=== PATIENT | female | born 1955 | race Caucasian/White ===

== ENCOUNTER → 2016-08-27 | Outpatient (CLI) | payer BC ==
--- NOTE | 2016-08-31 09:10 | MM ---
Reason for exam: screening (asymptomatic). Last mammogram was performed 13 years and 1 month ago. History: Patient is postmenopausal. Physical Findings: A clinical breast exam by your physician is recommended on an annual basis and results should be correlated with mammographic findings. MG Screening Mammo w CAD Bilateral CC and MLO view(s) were taken. No prior studies available for comparison. The breast tissue is heterogeneously dense. This may lower the sensitivity of mammography. Previous mammotome biopsy in the right breast. Some nodularity in the right breast is likely benign and can be reassessed in 6 months. Prior exams no longer available. ASSESSMENT: Probably benign, BI-RAD 3 RECOMMENDATION: Follow-up diagnostic mammogram of the right breast in 6 months.
== END | disposition home or self-care (01) ==
LOC: RADMAMWWP 08:36
PROVIDERS: ATTEND Internal Medicine
DX: Z12.31 Encounter for screening mammogram for malignant neoplasm of breast (principal)

== ENCOUNTER → 2018-07-20 | Outpatient (CLI) | payer OTHER ==
--- NOTE | 2018-07-21 13:02 | MM ---
Reason for exam: screening (asymptomatic). Last mammogram was performed 1 year and 11 months ago. History: Patient is postmenopausal. Physical Findings: A clinical breast exam by your physician is recommended on an annual basis and results should be correlated with mammographic findings. MG Screening Mammo w CAD Bilateral CC and MLO view(s) were taken. Prior study comparison: August 27, 2016, bilateral MG screening mammo w CAD. July 12, 2003, right breast special view mammogram. The breast tissue is heterogeneously dense. This may lower the sensitivity of mammography. There is chronic nodularity. There is no dominant lesion. No significant changes when compared with prior studies. ASSESSMENT: Benign, BI-RAD 2 RECOMMENDATION: Routine screening mammogram of both breasts in 1 year.
== END | disposition home or self-care (01) ==
LOC: RADMAMWWP 14:02
PROVIDERS: ATTEND Internal Medicine
DX: Z12.31 Encounter for screening mammogram for malignant neoplasm of breast (principal)
CPT/HCPCS: 77067

== ENCOUNTER 2018-12-28 09:43 | Day surgery (SDC) | payer OTHER ==
[2018-12-27 09:58] VITALS: BMI 22.2
[~2018-12-28 09:43] MED LIST: LIDOCAINE 1% 20 ML VIAL (10MG/ML) FOR IV START INTRADERMA PRN; MOXIFLOXACIN HCL 0.5% DROPS 3 ML BTL OP ONE; TETRACAINE 0.5% OPHTH (PF) DROPS 4 ML BTL OP ONE; TIMOLOL 0.5% OPHTH DROPS 5 ML BTL OP ONE
[2018-12-28 10:51] VITALS: TEMP 97.4
[2018-12-28] MEDS: PHENYLEPHRINE 2.5% OPHTH DRP 2ML OP NR ×3 (10:55→11:13)
[2018-12-28] MEDS: CYCLOPENTOLATE 1% OPHTH SOLN 2 ML BTL OP ONE ×3 (10:57→11:16)
[2018-12-28] MEDS: LACTATED RINGERS 1,000 ML IV SCH ×2 (11:08→11:53)
[2018-12-28] MEDS ORDERED: MIDAZOLAM 2 MG/2 ML VIAL ONE (11:46)
[2018-12-28] MEDS ORDERED: fentaNYL (PF) 50 MCG/ML 2 ML AMP ONE (11:46)
[2018-12-28] MEDS ORDERED: EPINEPHrine (PF) 0.3 ML in BALANCED SALT IRRIG SOLN COMB2 500 ML IRRIGATION ONE (12:07)
[2018-12-28] MEDS ORDERED: LIDOCAINE 1% (PF) 10MG/ML VIAL SQ ONE (12:15)
[2018-12-28] MEDS ORDERED: DUOVISC KIT (GREEN BOX) INTRAOCULA ONE (12:15)
[2018-12-28] MEDS ORDERED: BALANCED SALT IRRIG SOLN COMB2 15 ML IRRIG.SOLN INTRAOCULA ONE (12:15)
--- NOTE | 2018-12-28 12:35 | P.OP ---
Date of Procedure: 12/28/18 Preoperative Diagnosis: NS & POAG mild stage Postoperative Diagnosis: same Procedure(s) Performed: PIOL & iStent implant OD Implants: MX60T 24.5 x 1.25 Anesthesia: MAC Surgeon: Gerry Keating Estimated Blood Loss (ml): 0 Pathology: none sent Condition: stable Disposition: same day Indications for Procedure: blurry vision and glaucoma Operative Findings: no complications
[2018-12-28 12:59] VITALS: BP 144/84; PULSE 68; RESP 18
--- NOTE | 2018-12-29 06:09 | OP ---
OPERATIVE REPORT DATE OF SURGERY: December 28, 2018. PROCEDURE: Phacoemulsification of cataract and intraocular lens implant of the right eye with an eye stent implantation. PREOPERATIVE DIAGNOSIS: Nuclear sclerosis, regular astigmatism and primary open-angle glaucoma mild stage. POSTOPERATIVE DIAGNOSES: Nuclear sclerosis, regular astigmatism and primary open-angle glaucoma mild stage. SURGEON: Dr. Gerry Keating. ANESTHESIA: Topical. ESTIMATED BLOOD LOSS: Less than 5 mL. SPECIMEN TAKEN: None. NARRATIVE: After obtaining the appropriate consent, the patient was brought to the operating room. There she was asked to sit upright and the axes of 0 and 180 degrees were identified and marked with a gentian andrés marker. She was then brought into the proper supine position under cardiac monitoring then prepped and draped in the usual sterile manner. She was laid in the proper supine position and approached from her right temporal side. Using a Valencia toric axis marker which was aligned to the 78 degree axis was placed on the patient's cornea leaving a maggi at the 78 degree axis on her limbus. This was removed from the field and at the 11 o'clock position an MVR blade was used to create a paracentesis port. Through this opening 1% Xylocaine MPF 50:50 mix with balanced salt solution was injected into the anterior chamber. This was followed by stabilization of the anterior chamber with Viscoat. At 9 o'clock position, a 2.5 mm keratome was used to create a self-sealing corneal flap incision in a Langerman's fashion. A small dollop of Viscoat was placed on the patient's cornea. She was then asked to rotate her head approximately 45 degrees to her left and a gonioprism was placed on the patient's eye. Without the aid of trypan blue, the trabecular meshwork was identified and an iStent model [id number] was passed across the anterior chamber and placed within the trabecular meshwork on the nasal side of the patient's eye. She was then asked to return to the normal supine position to begin work on the anterior capsule. The capsulorrhexis was performed using a cystotome to start a continuous tear capsulorrhexis which was completed using the Utrata forceps. Hydrodissection and hydrodelineation of the lens was accomplished with balanced salt solution. Phacoemulsification of the lens utilizing phaco chop was accomplished in 12.79 seconds at 15% power. Additional Xylocaine MPF was instilled into the anterior chamber. This was followed by removal of the remaining cortex under irrigation and aspiration along with careful polishing of the posterior capsule in the capsule vacuum mode. Provisc was then used to stabilize the capsular bag and a Bausch and Lomb MX60T 24.5 diopter spherical equivalent by using a small 125 diopter toric lens was then placed into the capsular bag without difficulty. The remaining viscoelastic was removed from in and around the intraocular lens as well as from within the anterior chamber. The lens was allowed to dwell in the eye becoming warmer which allowed further relaxation of the haptics. Once this was accomplished, the lens was rotated into the axis of 78 degrees, which had been previously marked on the patient's eye. The optic of the lens was then tamponaded slightly against the posterior capsule to ensure rotational stability. The irrigation aspiration instrument was then carefully withdrawn from the anterior chamber and the anterior chamber was gently brought to normal intraocular pressure through the paracentesis port. The temporal incision was hydrated slightly with balanced salt solution. She then received 2 drops of 0.5% timolol followed by 2 drops of moxifloxacin and was then lightly patched and shielded in the usual manner. There were no complications from the procedure. She tolerated the procedure well and was returned to outpatient recovery in good condition. MMARABELLAL / ROCN: [id number] /
== END 2018-12-28 13:05 | disposition home or self-care (01) ==
LOC: OR 09:43
PROVIDERS: ATTEND Ophthalmology
DX: H25.13 Age-related nuclear cataract, bilateral (principal); H40.1131 Primary open-angle glaucoma, bilateral, mild stage; H40.033 Anatomical narrow angle, bilateral; H52.03 Hypermetropia, bilateral; H52.4 Presbyopia; H00.023 Hordeolum internum right eye, unspecified eyelid; H00.026 Hordeolum internum left eye, unspecified eyelid; E78.5 Hyperlipidemia, unspecified; F17.210 Nicotine dependence, cigarettes, uncomplicated; H52.221 Regular astigmatism, right eye; Z79.1 Long term (current) use of non-steroidal anti-inflammatories (NSAID); Z79.899 Other long term (current) drug therapy
CPT/HCPCS: 0191T; 66984

== ENCOUNTER 2019-01-11 06:24 | Day surgery (SDC) | payer OTHER ==
[2019-01-06 11:34] VITALS: BMI 28.0
[~2019-01-11 06:24] MED LIST changes: +CYCLOPENTOLATE 1% OPHTH SOLN 2 ML BTL OP ONE; +LACTATED RINGERS 1,000 ML IV SCH; +PHENYLEPHRINE 2.5% OPHTH DRP 2ML OP NR
[2019-01-11 07:03] VITALS: TEMP 97.6
[2019-01-11] MEDS ORDERED: MIDAZOLAM 2 MG/2 ML VIAL ONE (07:20)
[2019-01-11] MEDS ORDERED: fentaNYL (PF) 50 MCG/ML 2 ML AMP ONE (07:20)
[2019-01-11] MEDS ORDERED: EPINEPHrine (PF) 0.3 ML in BALANCED SALT IRRIG SOLN COMB2 500 ML IRRIGATION ONE (07:42)
[2019-01-11] MEDS ORDERED: LIDOCAINE 1% (PF) 10MG/ML VIAL INTRAARTIC ONE (07:44)
[2019-01-11] MEDS ORDERED: DUOVISC KIT (GREEN BOX) INTRAOCULA ONE (07:44)
[2019-01-11] MEDS ORDERED: BALANCED SALT IRRIG SOLN COMB2 15 ML IRRIG.SOLN INTRAOCULA ONE (07:44)
[2019-01-11] MEDS ORDERED: TRYPAN BLUE 0.06% SYRINGE 0.5 ML SYRINGE INTRAOCULA ONE (07:52)
--- NOTE | 2019-01-11 08:06 | P.OP ---
Date of Procedure: 01/11/19 Preoperative Diagnosis: NS & astigmatism & glaucoma mild stage Postoperative Diagnosis: same Procedure(s) Performed: PIOL, OS & iStent Implants: MX60T 24.0 x 1.25 & [id number] Anesthesia: MAC Surgeon: Gerry Keating Estimated Blood Loss (ml): 0 Pathology: none sent Condition: stable Disposition: same day Indications for Procedure: blurry vision astigmatism & glaucoma Operative Findings: No complications
[2019-01-11 08:36] VITALS: BP 123/76; PULSE 67; RESP 18
--- NOTE | 2019-01-11 14:29 | OP ---
OPERATIVE REPORT DATE OF SURGERY: 01/11/2019. PROCEDURE: Phacoemulsification of cataract and intraocular lens implant of the left eye with an eye stent implantation of the left eye. PREOPERATIVE DIAGNOSES: 1. Nuclear sclerosis. 2. Regular astigmatism. 3. Primary open-angle glaucoma, mild stage. POSTOPERATIVE DIAGNOSES: 1. Nuclear sclerosis. 2. Regular astigmatism. 3. Primary open-angle glaucoma, mild stage. SURGEON: Dr. Gerry Keating. ANESTHESIA: Topical. ESTIMATED BLOOD LOSS: None. SPECIMEN TAKEN: None. NARRATIVE: After obtaining the appropriate consent, the patient was brought to the operating room. There she was asked to sit upright and the axes of 0 and 180 degrees were marked with a gentian andrés marker. She was then laid in the proper supine position, prepped and draped in the usual sterile manner. She was approached from her left temporal side and at the anacorneal marker was set to an axis of 143 degrees was marked with gentian andrés and placed on the patient's corneal limbus. At the 5 o'clock position, an MVR blade was used to create a paracentesis port. Through this opening 1% xylocaine MPF 50- 50 mix with balanced salt solution was injected into the anterior chamber. This was followed by trypan blue to stain the tissues of the anterior capsule. This was irrigated away and Viscoat was used to stabilize the anterior chamber. A small amount was placed on the patient's cornea for use with agoneo prism as a coupling agent. At the 3 o'clock position, a 2.5 mm keratome was used to create a self-sealing corneal flap incision. The patient was then asked to rotate approximately 45 degrees to her right and agoneo prism was placed on the patient's eye and the trabecular meshwork was easily identified with the tri reich. A GlaBoxeveros eye stent, model GTS 100 mL was passed across the anterior chamber and implanted into the nasal trabecular meshwork. The patient then was returned to the normal supine position. A cystotome was used to begin a continuous tear capsulorrhexis which was completed using the Utrata forceps. Hydrodissection and hydrodelineation of the lens was accomplished with balanced salt solution. Phacoemulsification lens utilizing phaco chop was accomplished and 11.51 seconds of 15% power. Additional xylocaine MPF was instilled into the anterior chamber. This was followed by removal of the remaining cortex under irrigation aspiration along with careful polishing of the posterior capsule in the capsule vacuum mode. Provisc was then used to stabilize the capsular bag and a Bausch and Lomb MX60T 24.5 spherical equivalent 1.25 cylinder correction lens was placed into the patient's after removing the remaining viscoelastic from in and around the intra-ocular lens. The lens was then rotated to match the corneal monroy at 143 degrees. Once this was accomplished, the lens was tamponade slightly to ensure fixation at this orientation. Once the instrument was removed was removed. The eye was brought to normal and normal intraocular pressure through the paracentesis port with balanced salt solution. The incisions were confirmed watertight. She then received 2 drops of 0.5% timolol and 2 drops of moxifloxacin was then lightly patched and shielded in the usual manner. There were no complications from the procedure. She tolerated the procedure well and was returned to outpatient recovery in good condition. MMCODY / ROCN: [id number] / DIAMOND
== END 2019-01-11 08:34 | disposition home or self-care (01) ==
LOC: OR 06:24
PROVIDERS: ATTEND Ophthalmology
DX: H25.12 Age-related nuclear cataract, left eye (principal); H40.1121 Primary open-angle glaucoma, left eye, mild stage; H52.03 Hypermetropia, bilateral; H52.4 Presbyopia; H00.023 Hordeolum internum right eye, unspecified eyelid; H00.026 Hordeolum internum left eye, unspecified eyelid; Z79.1 Long term (current) use of non-steroidal anti-inflammatories (NSAID); Z79.899 Other long term (current) drug therapy; Z83.3 Family history of diabetes mellitus; Z82.49 Family history of ischemic heart disease and other diseases of the circulatory system; F17.200 Nicotine dependence, unspecified, uncomplicated

== ENCOUNTER → 2020-05-30 | Outpatient (CLI) | payer OTHER ==
--- NOTE | 2020-05-31 13:47 | MM ---
Reason for exam: screening (asymptomatic). Last mammogram was performed 1 year and 10 months ago. History: Patient is postmenopausal. Physical Findings: A clinical breast exam by your physician is recommended on an annual basis and results should be correlated with mammographic findings. MG Screening Mammo w CAD Bilateral CC and MLO view(s) were taken. Prior study comparison: July 20, 2018, bilateral MG screening mammo w CAD. August 27, 2016, bilateral MG screening mammo w CAD. The breast tissue is heterogeneously dense. This may lower the sensitivity of mammography. There are benign appearing round calcifications in the left breast. There is no discrete abnormality. ASSESSMENT: Benign, BI-RAD 2 RECOMMENDATION: Routine screening mammogram of both breasts in 1 year.
== END | disposition home or self-care (01) ==
LOC: RADMAMWWP 12:52
PROVIDERS: ATTEND Internal Medicine
DX: Z12.31 Encounter for screening mammogram for malignant neoplasm of breast (principal)
CPT/HCPCS: 77067

== ENCOUNTER → 2023-03-25 | Outpatient (CLI) | payer MEDICARE, BC ==
--- NOTE | 2023-03-25 09:15 | CTL ---
EXAMINATION TYPE: CT Low Dose Lung DATE OF EXAM ORDERED: 03/25/2023 HISTORY: Z87.891 PERSONAL HISTORY OF NICOTINE DEPENDENCE. Current smoker, 98 pack year history. Lung cancer screening CT DLP: [address] CTDI: 2.14 mGy Automated exposure control for dose reduction was used. SCREENING VISIT: First screening visit COMPARISON: None TECHNIQUE: Low dose computed tomography scan was performed through the chest at 1 mm thick sections a nd reconstructed images in multiple planes at 1 mm and [address] DIAGNOSTIC QUALITY: Satisfactory FINDINGS: LUNG NODULES: No clinically significant pulmonary nodules. LUNGS: COPD: Severity: Mild Fibrosis: Severity: None Lymph nodes: None Other findings: Fat filled right Bochdalek hernia. RIGHT PLEURAL SPACE: Effusion: None Calcification: None Thickening: None Pneumothorax: None LEFT PLEURAL SPACE: Effusion: None Calcification: None Thickening: None Pneumothorax: None HEART: Heart Size: Normal Coronary Calcification: Moderate Pericardial Effusion: None OTHER FINDINGS: Upper abdomen: Small hiatal hernia. Indeterminate left adrenal gland lesion measuring up to 2.7 cm wi th a Hounsfield unit of 17. Bony thorax: No acute osseous abnormality. Mild degenerative disc disease of the thoracic spine. Supraclavicular region: None Other: Atherosclerotic calcification of the aorta and its branches. IMPRESSION: 1. No clinically significant pulmonary nodules. 2. Mild COPD changes. 3. Indeterminate left adrenal gland lesion measuring up to 2.7 cm. Further evaluation with CT abdome n with and without IV contrast (adrenal mass protocol) is recommended. 4. CT LUNG RAD AND CT CHEST RECOMMENDATION: Lung-Rad 1 Negative: Continue annual screening with LDCT in 12 months. S Modifier (other clinically significant findings): S
== END | disposition home or self-care (01) ==
LOC: RADCTMAIN 08:41
PROVIDERS: ATTEND Family Medicine
DX: Z12.2 Encounter for screening for malignant neoplasm of respiratory organs (principal); F17.210 Nicotine dependence, cigarettes, uncomplicated; J44.9 Chronic obstructive pulmonary disease, unspecified
CPT/HCPCS: 71271

== ENCOUNTER → 2023-03-30 | Outpatient (CLI) | payer MEDICARE, BC ==
[2023-03-30 10:09] LABS: African American GFR (CKD) >90 (>60 ml/min/1.73 sqM); Blood Urea Nitrogen 13 mg/dL (7-17); Non-African American GFR(CKD) >90 (>60 ml/min/1.73 sqM)
--- NOTE | 2023-03-31 09:29 | CT ---
EXAMINATION TYPE: CT abdomen wo/w con CT DLP: 1585.3 mGycm, Automated exposure control for dose reduction was used. DATE OF EXAM: 03/30/2023 10:53 AM COMPARISON: CT most recent from 03/25/2023 CLINICAL INDICATION:Female, 68 years old with history of R19.09; left adrenal mass TECHNIQUE: Axial CT of the abdomen and pelvis. Sagittal and coronal reformats were created on a Piki workstation. Contrast used:100 mL of Isovue 300 without and with IV Contrast, (none if empty) Oral contrast used: with Oral Contrast (none if empty) FINDINGS: LOWER CHEST: Right posterior Bochdalek fat-containing hernia. ABDOMEN LIVER: Unremarkable GALLBLADDER AND BILE DUCTS: Unremarkable. PANCREAS: Unremarkable. SPLEEN: Unremarkable. ADRENAL GLANDS: Thickening of the adrenal glands Noncontrast Hounsfield units: -5.8 right and 0.2 left. Postcontrast Hounsfield units: 13.40 right and 10.68 left Delayed Hounsfield units: 6.79 right and 14.34 left Left: Absolute washout less than 60% is indeterminate. However, the low pre-contrast attenuation is s uggestive of an adenoma. Relative washout of 40% or higher is consistent with an adenoma. Right: Absolute washout less than 60% is indeterminate. However, the low pre-contrast attenuation is suggestive of an adenoma. Relative washout less than 40% is indeterminate. However, the low pre-cont rast attenuation is suggestive of an adenoma. KIDNEYS AND URETERS: No evidence of hydronephrosis or renal calculus. The ureters are unremarkable. PELVIS BLADDER: Unremarkable REPRODUCTIVE: Unremarkable. ABDOMEN & PELVIS STOMACH AND BOWEL: No evidence of bowel obstruction. PERITONEUM/RETROPERITONEUM: No evidence of pneumoperitoneum or free fluid. VASCULATURE: No evidence of aortic aneurysm. MUSCULOSKELETAL: No acute osseous abnormalities LYMPH NODES: No gross evidence for lymphadenopathy. SOFT TISSUE/ABDOMINAL WALL: Unremarkable IMPRESSION: Bilateral adrenal thickening with nodular-like change which on noncontrast imaging aren't diagnostic of adrenal adenomas/adenomatous hypertrophy changes.
== END | disposition home or self-care (01) ==
LOC: RADCTMAIN 09:19
PROVIDERS: ATTEND Family Medicine
DX: E27.8 Other specified disorders of adrenal gland (principal); R19.09 Other intra-abdominal and pelvic swelling, mass and lump
CPT/HCPCS: 82565; 84520; 74170; 36415; Q9967

== ENCOUNTER → 2023-05-21 | Day surgery (SDC) | payer MEDICARE, BC ==
[2023-05-18 12:35] VITALS: BMI 35.5
[~2023-05-21] MED LIST changes: -CYCLOPENTOLATE 1% OPHTH SOLN 2 ML BTL OP ONE; +LACTATED RINGERS 1,000 ML IV ONE; +LIDOCAINE 1% (10MG/ML) FOR IV START INTRADERMA PRN; -LIDOCAINE 1% 20 ML VIAL (10MG/ML) FOR IV START INTRADERMA PRN; -MOXIFLOXACIN HCL 0.5% DROPS 3 ML BTL OP ONE; -PHENYLEPHRINE 2.5% OPHTH DRP 2ML OP NR; +PROPOFOL 10 MG/ML 20 ML VIAL IV ONE; -TETRACAINE 0.5% OPHTH (PF) DROPS 4 ML BTL OP ONE; -TIMOLOL 0.5% OPHTH DROPS 5 ML BTL OP ONE
[2023-05-21 13:27] VITALS: TEMP 97.6
--- NOTE | 2023-05-21 14:32 | P.PCN ---
Date of Procedure: 05/21/23 Procedure(s) Performed: BRIEF HISTORY: Patient is a 68-year-old pleasant white female scheduled for an elective colonoscopy as a part of screening for colon cancer. PROCEDURE PERFORMED: Colonoscopy with snare polypectomy. PREOPERATIVE DIAGNOSIS: Screening for colon cancer. IV sedation per Anesthesia. PROCEDURE: After informed consent was obtained, the patient, was brought into the endoscopy unit. IV sedation was administered by Anesthesia under continuous monitoring. Digital rectal examination was normal. Initially the Olympus CF-160 flexible video colonoscope was then inserted in the rectum, gradually advanced into the sigmoid and further advancement was not possible as of acute angle duration and this area. . Distended. Colonoscopy was then inserted in the rectum and with gentle manipulation was advanced into the cecum without any difficulty. Careful examination was performed as the scope was gradually being withdrawn. Ileocecal valve and the appendiceal orifice were visualized and appeared normal. Prep was excellent. Mucosa of the cecum, ascending colon, appeared normal. In the transverse colon there was a 7 mm polyp removed by snare polypectomy. Rest of the transverse colon, descending colon, sigmoid colon, and rectum appeared normal. in the proximal rectum there was a 5 mm polyp removed by snare polypectomy. Moderate sigmoid diverticulosis. Retroflexion was performed in the rectum and no lesions were seen. The patient tolerated the procedure well. IMPRESSION: 7 mm transverse colon polyp status post polypectomy 5 mm proximal rectal polyp status post polypectomy Moderate sigmoid diverticulosis. RECOMMENDATIONS: Findings of this examination were discussed with the patieas well as a family. Advised to follow with the biopsy results. If the biopsies adenoma she can have a repeat colonoscopy in 5 years.
[2023-05-21 14:42] VITALS: RESP 16
[2023-05-21 15:19] VITALS: BP 142/88; PULSE 87
== END ==
LOC: ORWHC2ENDO 12:35
PROVIDERS: ATTEND Internal Medicine Gastroenterology
DX: Z12.11 Encounter for screening for malignant neoplasm of colon (principal); D12.3 Benign neoplasm of transverse colon; D12.8 Benign neoplasm of rectum; K57.30 Diverticulosis of large intestine without perforation or abscess without bleeding; E78.5 Hyperlipidemia, unspecified; J44.9 Chronic obstructive pulmonary disease, unspecified; M19.90 Unspecified osteoarthritis, unspecified site; H40.9 Unspecified glaucoma; H91.90 Unspecified hearing loss, unspecified ear; F17.200 Nicotine dependence, unspecified, uncomplicated
CPT/HCPCS: 88305; 45385; J2704

== ENCOUNTER → 2023-06-04 | Outpatient (CLI) | payer MEDICARE, BC ==
[2023-06-04 10:18] LABS: African American GFR (CKD) >90 (>60 ml/min/1.73 sqM); Blood Urea Nitrogen 15 mg/dL (7-17); Non-African American GFR(CKD) >90 (>60 ml/min/1.73 sqM)
--- NOTE | 2023-06-04 12:39 | CT ---
EXAMINATION TYPE: CT adrenal glands wo/w con DATE OF EXAM: 06/04/2023 COMPARISON: 03/30/2023 HISTORY: 68-year-old female D35.00, Adrenal nodule. TECHNIQUE: Contiguous axial scanning of the abdomen performed without and with IV Contrast, patient i njected with 100 mL of Isovue 300. Long delayed scan through the adrenal glands were obtained. Nelson l/sagittal reconstructions performed. CT DLP: 1207.70 mGycm Automated exposure control for dose reduction was used. FINDINGS: The heart is normal size without pericardial effusion. LAD and RCA coronary calcifications are presen t. Dependent atelectasis in the lower lungs. Small right-sided containing Bochdalek hernia. Liver mildly enlarged at 19.3 cm. Mild fatty infiltration. Small gallstones are present. No abnormal gallbladder distention. No nephrolithiasis. Extra renal pelvis and both kidneys. No hydronephrosis. Stable 1.8 cm cortical cyst medial lower pole right kidney. Smaller 9 mm cortical cyst lower pole lef t kidney. Spleen and pancreas within normal limits. Redemonstrated low-density mass of the left adrenal gland measuring 3.7 x 2.4 cm. Smaller low-density nodule of the right adrenal gland measuring 1.7 x 1.2 cm. Both of these show attenuation of less than 10 Hounsfield units and remained unchanged for approximat no 2 months. Consider precautionary annual surveillance follow-up if desired. Otherwise, the finding s suggest a benign etiology. No dilated small bowel, free fluid, or free air. No mesenteric or retroperitoneal lymphadenopathy. Moderate atherosclerotic calcifications partially visualized in the common iliac arteries and mild wi thin the abdominal aorta. Pelvis not imaged. Moderate degenerative disc disease lower thoracic spine and also L4-L5. IMPRESSION: STABLE 3.7 CM LOW-DENSITY LEFT ADRENAL MASS AND SMALLER 1.7 CM LOW-DENSITY NODULE RIGHT ADRENAL GLAND . ATTENUATION CHARACTERISTICS ARE COMPATIBLE WITH ADRENAL ADENOMAS. IF A PRECAUTIONARY SURVEILLANCE F OLLOW-UP IS DESIRED, CONSIDER A 12 MONTH FOLLOW-UP. OTHERWISE, THE FINDINGS SUGGEST A BENIGN ETIOLOGY .
== END | disposition home or self-care (01) ==
LOC: RADCTMAIN 09:17
PROVIDERS: ATTEND Urology
DX: D35.00 Benign neoplasm of unspecified adrenal gland (principal); E27.8 Other specified disorders of adrenal gland
CPT/HCPCS: 82565; 84520; 36415; 74170; Q9967

== ENCOUNTER → 2024-01-12 | Outpatient (CLI) | payer MEDICARE, BC ==
--- NOTE | 2024-01-12 11:40 | BD ---
EXAMINATION TYPE: Axial Bone Density DATE OF EXAM: 01/12/2024 CLINICAL HISTORY: 68 years old Female. ICD-10 CODE: Z12.31 screen mammo Z78.0 menopause Height: 61 Weight: 182.7 FRAX RISK QUESTIONS: Alcohol (3 or more units per day): no Family History (Parent hip fracture): no Glucocorticoids (More than 3mos): no (Ex: prednisone, prednisolone, methylprednisolone, dexamethasone, and hydrocortisone). History of Fracture in Adulthood: yes Secondary Osteoporosis: 1. Type 1 Diabetes: no 2. Hyperthyroidism: no 3. Menopause before 45: no 4. Malnutrition: no 5. Chronic liver disease: no Rheumatoid Arthritis: no Current Tobacco Use: yes RISK FACTORS HISTORY OF: Hip Fracture (Right/Left): no Spine Fracture: no History of Wrist Fracture: no Surgery to Spine/Hip(right/left)/Wrist (right/left): no MEDICATIONS: Thyroid Medications: no Osteoporosis Medications: no EXAM MEASUREMENTS: Bone mineral densitometry was performed using the Heyz[employer] System. Bone mineral density as measured about the Lumbar spine is: ----- L1-L4(G/cm2): 1.084 T Score Values are as follows: ----- L1: -0.9 ----- L2: -1.9 ----- L3: -0.8 ----- L4: 0.1 ----- L1-L4: -0.8 Z Score Values are as follows: ----- L1: 0.1 ----- L2: -0.9 ----- L3: 0.2 ----- L4: 1.2 ----- L1-L4: 0.2 Baseline Study Bone mineral density about the R hip (g/cm2): 0.822 Bone mineral density about the L hip (g/cm2): 0.877 T Score values are as follows: -----R Neck: -1.7 -----L Neck: -1.6 -----R Total: -1.5 -----L Total: -1.0 Z Score values are as follows: -----R Neck: -0.5 -----L Neck: -0.4 -----R Total: -0.6 -----L Total: -0.1 Baseline Study FRAX%s: The graph provided illustrates a 15.7 % chance for a major osteoporotic fx and a 3.4% chance for the hips probability for fx in 10 years time. IMPRESSION: Osteopenia (T Score between -2.5 and -1). There is slightly increased risk of fracture and the patient may be considered for treatment. Re-Screen 2-5 years. NOTE: T-SCORE=SD OF THE YOUNG ADULT MEAN.
--- NOTE | 2024-01-13 09:23 | MM ---
Reason for Exam: Screening (asymptomatic). Last mammogram was performed 1 year(s) and 4 month(s) ago. Patient History: Menarche at age 13. First Full-Term at age 29. Postmenopausal. Risk Values: Teena 5 year model risk: 1.9%. NCI Lifetime model risk: 6.4%. Prior Study Comparison: 08/27/2016 Bilateral Screening Mammogram, [facility]. 07/20/2018 Bilateral Screening Mammogram, [facility]. 05/30/2020 Bilateral Screening Mammogram, [facility]. 09/10/2022 Bilateral MG 3D screening mammo w/cad, [facility]. Tissue Density: The breasts are heterogeneously dense, which may obscure small masses. Findings: Analyzed By CAD. There is no suspicious group of microcalcifications or new suspicious mass in either breast. Overall Assessment: Benign, BI-RAD 2 Management: Screening Mammogram of both breasts in 1 year. . Patient should continue monthly self-breast exams. A clinical breast exam by your physician is recommended on an annual basis. This exam should not preclude additional follow-up of suspicious palpable abnormalities. Note on Teena scores and lifetime risk: 1. A Teena score greater than 3% is considered moderate risk. If this is the case, consider specialist referral to assess eligibility for a risk reducing agent. 2. If overall lifetime risk for the development of breast cancer is 20% or higher, the patient may qualify for future screening with alternating mammogram and breast MRI. Electronically signed and approved by: Kleber Rodarte M.D. Radiologis
== END | disposition home or self-care (01) ==
LOC: RADMAMWWP 07:29
PROVIDERS: ATTEND Family Medicine
DX: Z12.31 Encounter for screening mammogram for malignant neoplasm of breast (principal); M85.89 Other specified disorders of bone density and structure, multiple sites; Z78.0 Asymptomatic menopausal state
CPT/HCPCS: 77067; 77080

== ENCOUNTER → 2025-01-16 | Outpatient (CLI) | payer MEDICARE ==
--- NOTE | 2025-01-16 11:35 | MM ---
Reason for Exam: Screening (asymptomatic). Last screening mammogram was performed 12 month(s) ago. Patient History: Menarche at age 13. First Full-Term at age 29. Postmenopausal. Risk Values: Teena 5 year model risk: 1.9%. NCI Lifetime model risk: 6.2%. Prior Study Comparison: 05/30/2020 Bilateral Screening Mammogram, [facility]. 09/10/2022 Bilateral MG 3D screening mammo w/cad, [facility]. 01/12/2024 Bilateral MG screening mammo w CAD, [facility]. Tissue Density: The breasts are heterogeneously dense, which may obscure small masses. Findings: Analyzed By CAD. We note some dermal calcifications posteriorly on the right MLO view. Microclip right breast from prior biopsy/procedure. There is no suspicious group of microcalcifications or new suspicious mass in either breast. Overall Assessment: Benign, BI-RAD 2 Management: Screening Mammogram of both breasts in 1 year. Patient should continue monthly self-breast exams. A clinical breast exam by your physician is recommended on an annual basis. This exam should not preclude additional follow-up of suspicious palpable abnormalities. Note on Teena scores and lifetime risk: 1. A Teena score greater than 3% is considered moderate risk. If this is the case, consider specialist referral to assess eligibility for a risk reducing agent. 2. If overall lifetime risk for the development of breast cancer is 20% or higher, the patient may qualify for future screening with alternating mammogram and breast MRI. [facility], , 01/16/2025 11:32 AM. Electronically signed and approved by: Prakash Chappell M.D. Radiologist
== END | disposition home or self-care (01) ==
LOC: RADMAMWWP 10:15
PROVIDERS: ATTEND Family Medicine
DX: Z12.31 Encounter for screening mammogram for malignant neoplasm of breast (principal); R92.333 Mammographic heterogeneous density, bilateral breasts; Z78.0 Asymptomatic menopausal state
CPT/HCPCS: 77067